=== PATIENT | male | born 1980 | race Caucasian/White ===

== ENCOUNTER 2020-01-22 06:29 | Outpatient (CLI) | payer BC, OTHER ==
[2020-01-21 17:13] VITALS: BMI 30.9
[2020-01-23 14:25] LABS: SARS-CoV-2 MS2 Positive; SARS-CoV-2 N Gene Negative; SARS-CoV-2 S Gene Negative; SARS-CoV-2 orf1ab Negative
== END 2020-01-22 06:30 | disposition home or self-care (01) ==
LOC: LABBT 06:29
PROVIDERS: ATTEND Podiatrist Foot & Ankle Surgery
DX: Z01.812 Encounter for preprocedural laboratory examination (principal); Z11.59 Encounter for screening for other viral diseases; M20.22 Hallux rigidus, left foot; M20.21 Hallux rigidus, right foot; M19.011 Primary osteoarthritis, right shoulder; M19.012 Primary osteoarthritis, left shoulder
CPT/HCPCS: 87635; U0003

== ENCOUNTER 2020-01-26 11:47 | Day surgery (SDC) | payer BC ==
[~2020-01-26 11:47] MED LIST: Glycopyrrolate 0.2 MG/ML 5 ML SYRINGE ONE; Ketorolac Tromethamine 30 MG/ML VIAL ONE; Lidocaine 1% PF 5 ML VIAL ONE; Ondansetron PF 4 MG/2 ML Vial ONE; PROPOFOL 200 MG/20 ML VIAL ONE
[2020-01-26] MEDS ORDERED: Bupivacaine PF 0.5% 30 ML VIAL ONE (12:14)
[2020-01-26] MEDS ORDERED: Neomycin-Polymyxin 1 ML AMP ONE (12:15)
[2020-01-26] MEDS ORDERED: Fentanyl 100 MCG/2 ML VIAL ONE ×3 (12:17→18:28)
[2020-01-26] MEDS ORDERED: Promethazine HCl 25 MG/ML VIAL ONE (17:40)
--- NOTE | 2020-01-26 18:23 | RAD ---
RIGHT FOOT THREE VIEWS: History: Post op FINDINGS: Osteotomy changes of the first metatarsal are noted with a single screw fixing the osteotomy in place . IMPRESSION: Post osteotomy changes of the first metatarsal. POS: [facility]
[2020-01-26] MEDS ORDERED: HYDROcodone/Acetaminophen 5/325 mg Tablet ONE ×2 (18:27→19:40)
--- NOTE | 2020-01-26 18:46 | RAD ---
LEFT FOOT THREE VIEWS: History: Post op FINDINGS: Post op osteotomy changes of the first metatarsal head present. There are surgical screws present in this region, fixing the osteotomy. It is somewhat difficult to assess the orientation of the sesamoid . They appear slightly laterally displaced on the AP projection. There is some osteophytic change inv olving the base of the proximal phalanx of the great toe. IMPRESSION: Osteotomy changes of the first metatarsal. POS: [facility]
--- NOTE | 2020-01-26 23:17 | OP ---
DATE OF PROCEDURE: 01/26/2020 PREOPERATIVE DIAGNOSES: Hallux limitus, bilateral osteoarthritis, first metatarsophalangeal joint, bilateral feet; and pain, bilateral feet. POSTOPERATIVE DIAGNOSES: Hallux limitus, bilateral osteoarthritis, first metatarsophalangeal joint, bilateral feet; and pain, bilateral feet. PROCEDURES: Decompression osteotomy, bilateral first metatarsophalangeal joint with screw fixation; resurfacing of first metatarsal head with AFlex graft, bilateral. ANESTHESIA: General with local foot block. HEMOSTASIS: Pneumatic ankle tourniquet at 200 mmHg. ESTIMATED BLOOD LOSS: Less than 40 mL. MATERIALS: 2-0 Vicryl, 4-0 Vicryl, and 3-0 Prolene. IMPLANTS: Two Arthrex AFlex graft 2.5 mm in thickness to within the headless compression screw, 3 mm x 26 and 3 mm x 28 mm in length. DESCRIPTION OF PROCEDURE: The patient was brought into the operating room and placed on operating table in supine position. Well-padded pneumatic ankle tourniquet was placed about the patient's ankle. Following administration of IV anesthesia, local foot block was given utilizing 30 mL of 0.5% Marcaine plain. The foot was then scrubbed, prepped, and draped in usual aseptic manner. Esmarch bandage was used using with the patient's right foot, and the pneumatic ankle tourniquet was then inflated to 200 mmHg, which provided adequate hemostasis throughout the entire procedure. Next, attention was then directed to the dorsal aspect of the patient's first metatarsophalangeal joint, where a 4 cm linear longitudinal incision was made over the first metatarsophalangeal joint. The incision was deepened to the level of the bone with care being taken to retract all vital neurovascular structures. All bleeders were cauterized as necessary. Next, the osteophytes were then carefully resected from the joint, and the medial prominence and dorsal prominences were then carefully resected. Next, utilizing techniques and principles of Arthrex, a 22 mm reamer was used to resurfaced the metatarsal head. Next, a sagittal bone saw was used to perform a Reverdin-Green type bunionectomy, where a 2 mm section of bone was removed dorsally decompressing the joint. Next, utilizing techniques and principles of Synthes, a 3.0 headless compression screw was placed across the osteotomy site from dorsal proximal to plantar distal. The wound was irrigated with copious amounts of sterile normal saline and mixture. Next, the AFlex graft was then prepared and was then placed over the joint through utilizing FiberTape and push anchors. All excessive graft was then trimmed and passed from the operative field. The wound was irrigated with copious amounts of sterile normal saline and mixture. The capsular structures were reapproximated and coapted utilizing 2-0 Vicryl, the subcuticular structures were reapproximated and coapted utilizing 4-0 Vicryl in a running subcuticular suture pattern, and the skin was closed utilizing 3-0 Prolene. A light compressive dressing was placed about the patient's right foot, and the pneumatic ankle tourniquet was released with prompt hyperemic response noted to all digits of the right foot. Next, attention was then directed to the patient's left foot, where the same exact procedure was then performed including a Reverdin-Green decompressive osteotomy along with a placement of an AFlex skin graft. Upon completion of this procedure, the skin was reapproximated and coapted in the same technique used on the right foot, and a light compressive dressing was placed about the patient's left foot. The pneumatic ankle tourniquet was then deflated, and prompt hyperemic response was noted to all digits of the left foot. DISCHARGE SUMMARY: Following period of postoperative monitoring, the patient is to be discharged home. Should he have any problems prior to the first postoperative appointment, he is advised to call or be seen within one week of the procedure. Job ID: [id number]
== END 2020-01-26 20:45 | disposition home or self-care (01) ==
LOC: SDC 11:47
PROVIDERS: ATTEND Podiatrist Foot & Ankle Surgery
PROC: 0QSN04Z Reposition Right Metatarsal with Internal Fixation Device, Open Approach (ICD-10-PCS; principal; 2020-01-26)
PROC: 0QSP04Z Reposition Left Metatarsal with Internal Fixation Device, Open Approach (ICD-10-PCS; principal; 2020-01-26)
DX: M20.21 Hallux rigidus, right foot (principal); M20.22 Hallux rigidus, left foot; M17.0 Bilateral primary osteoarthritis of knee
CPT/HCPCS: 76000; J0690; J1885; J2001; J2405; J2550; J2704; J3010; S0020